=== PATIENT | female | born 2000 | race Caucasian/White ===

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

== ENCOUNTER 2020-07-16 03:15 | Emergency (ER) | payer OTHER ==
[~2020-07-16 03:15] MED LIST: BACTRIM DS TAB1 EACH PO; IBU600 MG PO; IBUPROFEN800 MG PO
[2020-07-16 05:01] LABS: HEMOGLOBIN 13.4 gm/dl (12.3-15.3); RED BLOOD COUNT 5.14 M/UL (4.00-5.10); WHITE BLOOD COUNT 13.8 K/UL (4.5-11.0)
[2020-07-16 05:11] LABS: BUN/CREATININE RATIO 20 (0-10)
== END 2020-07-16 08:26 | disposition home or self-care (01) ==
LOC: ER1 03:15
PROVIDERS: Emergency Medicine
DX: F10.129 Alcohol abuse with intoxication, unspecified (principal)
CPT/HCPCS: 0240U; 80053; 80307; 81001; 85025; 96374; 99284; G0480; J2405